=== PATIENT | male | born 1995 | race Caucasian/White ===

== ENCOUNTER 2024-06-23 16:32 | Emergency (ER) | payer SELFPAY ==
[2024-06-23 16:32] VITALS: BP 137/80; PULSE 108; RESP 20; TEMP 36.6; O2SAT 99
--- NOTE | 2024-06-23 16:35 | ED_ITS ---
HPI - Wound/Laceration General Chief Complaint: Wound/Laceration Stated Complaint: lac to left arm Time Seen by Provider: 06/23/24 16:34 Source: patient Mode of arrival: ambulatory Limitations: no limitations History of Present Illness HPI narrative: Patient is a 28-year-old male with a left upper extremity laceration after moving a glass window prior to arrival. Tetanus shot not up-to-date. Onset (ago): minute(s) (30) Location: other ( Left upper extremity) Extremity Location: Left: forearm ( 2 on the distal forearm and 4 on the proximal forearm) Place: outdoors Patient tetanus UTD: No Context: accidental Associated symptoms: pain Treatments prior to arrival: bandage Related Data Allergies Allergy/AdvReac Type Severity Reaction Status Date / Time bee venom protein (honey bee) Allergy Swelling Verified 06/23/24 16:47 [bees] Review of Systems Review of Systems: All systems reviewed & are unremarkable except as noted in HPI and below Constitutional: Constitutional: Reports no additional constitutional compl aints Eyes: Eyes: Reports no additional eye complaints ENT: Reports system reviewed and no additional complaints, except as documented Cardiovascular: Cardiovascular: Reports no additional cardiovascular complaints Respiratory: Respiratory: Reports no additional respiratory complaints Gastrointestinal: Gastrointestinal: Reports no additional gastrointestinal complaints Genitourinary: Genitourinary: Reports no additional male genitourinary complaints Musculoskeletal: Musculoskeletal: Reports no additional musculoskeletal complaints Integumentary/Breasts: Skin/Breast: Reports system reviewed and no additional complaints, except as docu Neurologic: Reports system reviewed and no additional complaints, except as documented Psychiatric: Psychiatric: Reports no additional psychiatric complaints Endocrine: Endocrine: Reports no additional endocrine complaints Hematologic/Lymphatic: Hematologic/Lymphatic: Reports no additional hematologic/lymphatic complaints Allergic/Immunologic: Allergic/Immunologic: Reports no additional allergic/immunologic complaints Exam Const: General: healthy appearing Nutritional Appearance: well nourished Orientation/consciousness: patient oriented x3 HENMT: Head: normal to inspection Ears: external ears normal Face/Nose/Sinus: Normal external nose present Eyes: Conjunctivae: conjunctivae normal Pupils: Equal, round and reactive pupils present EOM: EOMs intact bilaterally Neck: Neck: normal visual inspection Chest: Chest palpation & inspection: normal inspection of the chest Resp: Effort & Inspection: normal respiratory effort and not labored Auscultation: clear to auscultation bilaterally and no crackles Cardio: Rate: regular rate Rhythm: regular rhythm Heart sounds: no murmurs GI: Inspection: non-distended GI Palp: Yes Soft to palpation and No Tenderness to palpation present (GI) Auscultation: normal bowel sounds Back/Spine/Pelvis: Back: no CVA tenderness Skin: General skin exam: normal color Rashes: no rashes Wounds: wound noted and wounds noted Other: distal left forearm has 2 large superficial skin tears down to the subcutaneous tissue without skin present /avulsion. Proximal left forearm has 4 deep wound lacerations to the fat layer through subcutaneous tissue and minimal bleeding without arterial bleed. From distal to proximal sizing: irregular 3 x 2 cm, irregular 6 x 2 cm, 5 cm, linear x2 small 1.5 cm, irregular 3 cm Neuro: General: patient oriented x3 Cranial nerves: Yes Nystagmus not present Speech: normal speech Gait exam (Neuro): Normal gait present Extrem: General: normal to inspection Psych: Mental Status: mental status grossly normal Affect: normal affect and Anxious affect present Attitude: cooperative Course Vital Signs Vital signs: Vital Signs Temperature 36.6 C 06/23/24 16:32 Pulse Rate 108 H 06/23/24 16:32 Respiratory Rate 20 06/23/24 16:32 Blood Pressure 137/80 06/23/24 16:32 Pulse Oximetry 99 06/23/24 16:32 Oxygen Delivery Room Air 06/23/24 16:32 Temperature 36.6 C 06/23/24 16:32 Pulse Rate 108 H 06/23/24 16:32 Respiratory Rate 20 06/23/24 16:32 Blood Pressure 137/80 06/23/24 16:32 Pulse Oximetry 99 06/23/24 16:32 Oxygen Delivery Room Air 06/23/24 16:32 Procedures Other Procedure Procedure 1: Other Procedure: Left upper extremity repair: Area cleaned with chlorhexidine spray, 13 total christoph added to the proximal lesions, Surgicel placed on the distal lesions, nonstick pads and Coban placed on top of all of the areas, triple antibiotic was placed prior to bandage MDM - Wound/Laceration MDM Narrative Medical decision making narrative: patient is a 28-year-old male with a left upper extremity multiple lacerations secondary to accidental breaking a glass onto the extremity. We will make closure to the proximal lesions and the distal lesions that her avulsion will do Surgicel. He will get a tetanus shot. He will get pain management. Discharge Plan Discharge Clinical Impression: Laceration, Avulsion of skin Patient Disposition: Home, Self-Care Condition: Stable Instructions: Antibiotic Form, Laceration (ED) Additional Instructions: Please follow-up with the primary doctor in the next week. Have the christoph removed in 7 days. Prescriptions: New cephalexin 500 mg capsule 500 mg PO BID 7 Days Qty: 14 0RF Follow-up/Referrals: UNKNOWN,DOCTOR [Primary Care Provider] - Time of Disposition: 17:44
[2024-06-23] MEDS: MORPHINE SULFATE (*CRX) 4 MG/ML INJ IM (16:43)
[2024-06-23] MEDS: TETANUS,DIPHTHERIA,AC PERTUSSIS ADULT 0.5 ML (ADACEL) IM (16:44)
[2024-06-23 18:10] VITALS: BP 129/82; PULSE 88; RESP 20; TEMP 36.7; O2SAT 100
== END 2024-06-23 18:10 | disposition home or self-care (01) ==
LOC: CHSED 16:58
PROVIDERS: Emergency Provider Emergency Medicine
DX: S51.812A Laceration without foreign body of left forearm, initial encounter (principal); W25.XXXA Contact with sharp glass, initial encounter; Z23 Encounter for immunization
CPT/HCPCS: 12002; 90715; 96372; 99283; J2270